=== PATIENT | male | born 1940 | race Caucasian/White ===

== ENCOUNTER 2018-08-11 07:36 | Outpatient (CLI) | payer OTHER | END 2018-08-11 07:50 | disposition home or self-care (01) | LOC: TOM 07:36 | DX: R19.5 Other fecal abnormalities (principal) ==

== ENCOUNTER 2019-11-25 07:14 | Outpatient (CLI) | payer OTHER | END 2019-11-25 07:23 | disposition home or self-care (01) | LOC: TOM 07:14 | PROVIDERS: ATTEND Internal Medicine Gastroenterology | DX: R19.5 Other fecal abnormalities (principal) ==

== ENCOUNTER 2020-06-29 10:41 | Day surgery (SDC) | payer OTHER | END 2020-06-29 14:50 | disposition home or self-care (01) | LOC: AMB-ENDOS 10:41 → ADM 07-20 07:00 | PROVIDERS: ATTEND Colon & Rectal Surgery | DX: K62.89 Other specified diseases of anus and rectum (principal); K64.0 First degree hemorrhoids; Z20.822 Contact with and (suspected) exposure to COVID-19 ==